=== PATIENT | male | born 1990 | race African-American/Black ===

== ENCOUNTER 2018-07-27 23:24 | Emergency (ER) | payer OTHER ==
[2018-07-28 00:41] VITALS: BP 141/73
[2018-07-28] MEDS ORDERED: ACETAMINOPHEN 325 MG TABLET PO ONE (01:26)
[2018-07-28] MEDS ORDERED: IBUPROFEN 600 MG TABLET PO ONE (01:26)
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
== END 2018-07-28 03:34 | disposition home or self-care (01) ==
LOC: ER 23:24
DX: S00.81XA Abrasion of other part of head, initial encounter (principal); M79.642 Pain in left hand; M79.645 Pain in left finger(s); M25.561 Pain in right knee; V87.7XXA Person injured in collision between other specified motor vehicles (traffic), initial encounter
CPT/HCPCS: 99284